=== PATIENT | male | born 2000 ===

== ENCOUNTER 2023-05-19 12:37 | Outpatient (CLI) | payer OTHER, SELFPAY ==
--- NOTE | ~2023-05-19 | MR_ITS ---
EXAMINATION: MR knee LT wo con DATE: 05/19/2023 13:27 INDICATION: Posterior left knee pain TECHNIQUE: Magnetic resonance imaging (MRI) of the left knee was performed without intravenous contra st. Sequences included coronal PD-weighted FSE, coronal PD-weighted FS FSE, sagittal T2-weighted FSE , sagittal PD-weighted FS FSE and axial PD weighted fat saturated FSE. COMPARISON: None. FINDINGS: Medial compartment: Medial meniscus is normal. Articular cartilage is normal. Lateral compartment: Lateral meniscus is normal. Articular cartilage is normal. Patellofemoral compartment: Articular cartilage is normal. Ligaments and tendons: Anterior and posterior cruciate ligaments are normal. The medial collateral ligament and fibular tejas ateral ligament complex are normal. The extensor mechanism is normal. The visualized medial and later al hamstring tendons as well as the iliotibial band are normal. Fluid: Physiologic amount of fluid in the joint space. No loose osteochondral bodies identified. Osseous/other: 8 mm low signal intensity likely bone island in the medial femoral condyle. Bone marrow signal is oth erwise normal. No fracture or pathologic marrow replacing process. IMPRESSION: 1. Bone island at the medial femoral condyle. Otherwise unremarkable left knee MRI with normal cartil age, menisci, tendons and stabilizing ligaments. Reviewed, dictated and finalized at location A. IMPRESSION: 1. Bone island at the medial femoral condyle. Otherwise unremarkable left knee MRI with normal cartilage, menisci, tendons and stabilizing ligaments.
== END 2023-05-19 12:38 ==
PROVIDERS: PCP Nurse Practitioner; Visit Provider Nurse Practitioner
DX: M25.562 Pain in left knee (principal)
CPT/HCPCS: 73721